=== PATIENT | female | born 1940 | race Caucasian/White ===

== ENCOUNTER 2022-11-13 11:46 | Emergency (ER) | payer MEDICARE, OTHER ==
[~2022-11-13] VITALS: Ht 170.2 cm; Wt 50.8 kg
[2022-11-13] MEDS ORDERED: HYDROCODONE/APAP 5-325MG TABLET PO ONE (12:00)
[2022-11-13] MEDS ORDERED: HYDROCODONE/APAP 5-325MG TABLET ONE (12:03)
[2022-11-13] MEDS ORDERED: HYDR-4209 PO (13:40)
--- NOTE | 2022-11-13 13:51 | NUR ---
Patient discharged to home in stable condition. Written and verbal after care instructions given. Patient verbalizes understanding of instructions. Stressed follow up or return to ER for worsening s/s. Cherise with voucher (#[id number]) called for patient for ride home.
== END 2022-11-13 13:53 | disposition home or self-care (01) ==
LOC: ER 11:46
DX: S30.0XXA Contusion of lower back and pelvis, initial encounter (principal); Z79.899 Other long term (current) drug therapy; W18.39XA Other fall on same level, initial encounter; Y93.89 Activity, other specified; Y92.89 Other specified places as the place of occurrence of the external cause; Y99.8 Other external cause status
CPT/HCPCS: 72131; 72192; A4663

== ENCOUNTER 2024-02-09 17:47 | Inpatient (IN) | payer MEDICARE, OTHER ==
[~2024-02-09] VITALS: Ht 167.6 cm; Wt 58.1 kg
[~2024-02-09 17:47] MED LIST: HYDR-4209 PO
[2024-02-09 18:10] LABS: *BILIRUBIN,URIN NEGATIVE (NEGATIVE); *BLOOD, URINE NEGATIVE (NEGATIVE); *CLARITY,URINE CLEAR (CLEAR); *COLOR,URINE YELLOW (YELLOW); *KETONES,URINE NEGATIVE (NEGATIVE); *PROTEIN,URINE NEGATIVE (NEGATIVE); *UROBILINOGEN,URINE 0.2 E.U./dl (NORMAL); LEUKOCYTE ESTERASE ,URINE TRACE (NEGATIVE); NITRITE, URINE NEGATIVE (NEGATIVE); PH,URINE 6.5 (5.0-8.0); UGLUCOSE NEGATIVE (NEGATIVE)
[2024-02-09] MEDS ORDERED: DICL100G31 TP (18:12)
[2024-02-09] MEDS ORDERED: HYDR20CR3 TOP (18:12)
[2024-02-09] MEDS ORDERED: CLOT15CR27 TP (18:12)
[2024-02-09] MEDS ORDERED: DONE5TAB34 PO (18:12)
[2024-02-09] MEDS ORDERED: ACET-2605 PO (18:12)
[2024-02-09] MEDS ORDERED: NYST15CR TP (18:12)
[2024-02-09] MEDS ORDERED: MEMA10TA PO (18:12)
[2024-02-09] MEDS ORDERED: VENL-192 PO (18:12)
[2024-02-09 18:17] LABS: RBC,URINE 0-3 /HPF (0-3)
[2024-02-09 18:29] LABS: BASOPHILS % (AUTO) 0.5 % (0.0-2.0); EOSINOPHILS % (AUTO) 0.2 % (0.0-7.0); HEMATOCRIT 40.1 % (31.2-41.9); HEMOGLOBIN 13.6 g/dL (10.9-14.3); LYMPHOCYTES # (AUTO) 1.9 K/uL (0.8-4.8); LYMPHOCYTES % (AUTO) 30.9 % (20.5-51.5); MEAN CORPUSCULAR HEMOGLOBIN 30.9 uug (24.7-32.8); MEAN CORPUSCULAR HGB CONC 34 g/dL (32.3-35.6); MEAN CORPUSCULAR VOLUME 91.4 fL (75.5-95.3); MONOCYTES # (AUTO) 0.7 K/uL (0.1-1.30); NEUTROPHILS # (AUTO) 3.5 K/uL (1.8-8.9); NEUTROPHILS % (AUTO) 57.4 % (38.5-71.5); PLATELET COUNT (AUTO) 305 K/uL (179-408); RED BLOOD CELL COUNT(AUTO) 4.39 MIL/uL (3.63-4.92); RED CELL DISTRIBUTION WIDTH 13.4 % (12.3-17.7); WHITE BLOOD COUNT (AUTO) 6.1 K/uL (3.8-11.8)
[2024-02-09 18:33] LABS: DIFFERENTIAL COMMENT 1
[2024-02-09 18:43] LABS: ETHANOL < 3 MG/DL (0-10)
[2024-02-09 18:45] LABS: *AMPHETAMINE, URINE NEGATIVE (NEGATIVE); *BARBITURATE, URINE NEGATIVE (NEGATIVE); *BENZODIAZEPINE, URINE NEGATIVE (NEGATIVE); *CANNABINOID, URINE NEGATIVE (NEGATIVE); *COCCAINE, URINE NEGATIVE (NEGATIVE); *OPIATE, URINE NEGATIVE (NEGATIVE); *PHENCYCLIDINE SCREEN,URINE NEGATIVE (NEGATIVE); FENTANYL, URINE NEGATIVE (NEGATIVE)
[2024-02-09 18:55] LABS: CALCIUM 9.5 mg/dL (8.5-10.1); CARBON DIOXIDE 25 mmol/L (21-32); CHLORIDE 104 mmol/L (98-107); GLUCOSE 105 mg/dL (74-106); SODIUM SERUM 139 mmol/L (136-145); UREA NITROGEN, BLOOD 22 mg/dL (7-18)
[2024-02-09 19:03] LABS: ALANINE AMINOTRANSFERASE 26 U/L (14-59); ALBUMIN 3.7 g/dL (3.4-5.0); ALKALINE PHOSPHATASE 92 U/L (50-136); ASPARTATE AMINOTRANSFERASE 12 U/L (15-37); BILIRUBIN,DIRECT 0.1 mg/dL (0.0-0.2); BILIRUBIN,TOTAL 0.5 mg/dL (0.2-1.0); TOTAL PROTEIN, SERUM 7.6 g/dL (6.4-8.2)
[2024-02-09 19:04] LABS: ACETAMINOPHEN < 2.0 ug/mL (10-30)
[2024-02-09 19:14] LABS: AMMONIA 14 umol/L (11-32)
[2024-02-09] MEDS ORDERED: LORAZEPAM 0.5 MG TABLET ONE (22:29)
[2024-02-09] MEDS ORDERED: ACETAMINOPHEN 325 MG TABLET PO PRN (22:30)
[2024-02-09] MEDS: BLOOD SUGAR DIAGNOSTIC 1 EACH STRIP VI ONE (22:30)
[2024-02-09] MEDS ORDERED: MAGNESIUM HYDROXIDE 30 ML LIQUID UDC PO PRN (22:30)
[2024-02-09] MEDS ORDERED: MAG HYDROX/AL HYDROX/SIMETH 30 ML LIQUID UDC PO PRN (22:30)
[2024-02-09] MEDS: LORAZEPAM 0.5 MG TABLET PO ONE (22:31)
[2024-02-09] MEDS ORDERED: HYDROCODONE/APAP 5-325MG TABLET PO PRN (23:15)
[2024-02-10 09:45] VITALS: BP 96/79; TEMP 98; O2SAT 98
[2024-02-10] MEDS: CLONAZEPAM 0.5 MG TABLET PO PRN (11:04)
[2024-02-10] MEDS: VENLAFAXINE 25 MG TABLET PO SCH (12:58)
[2024-02-10] MEDS: MEMANTINE HCL 10 MG TABLET PO SCH (14:15)
[2024-02-10 20:00] VITALS: BP 122/90; TEMP 97.8
[2024-02-10] MEDS: TEMAZEPAM 7.5 MG CAPSULE PO PRN (21:22)
[2024-02-11] MEDS: DONEPEZIL 10 MG TABLET PO SCH (09:00)
[2024-02-11] MEDS: ENSURE WITH FIBER 237 ML LIQUID (CHOCOLATE) PO SCH (11:45)
[2024-02-11 20:00] VITALS: TEMP 98; O2SAT 98
[2024-02-12 15:00] VITALS: BP 121/70; TEMP 99; O2SAT 96
[2024-02-12 19:49] VITALS: BP 118/68; TEMP 98.6; O2SAT 95
[2024-02-13] MEDS: LORAZEPAM 2 MG/1 ML VIAL IM ONE (11:23)
[2024-02-13] MEDS: OLANZAPINE 10 MG VIAL IM ONE (11:23)
[2024-02-13 20:22] VITALS: BP 141/66; TEMP 98.1; O2SAT 99
[2024-02-13] MEDS: DIVALPROEX SPRINKLE 125 MG CAP.SPRINK PO SCH (20:53)
[2024-02-14 07:49] VITALS: BP 123/57; TEMP 97.6; O2SAT 96
[2024-02-14 16:12] VITALS: BP 134/61; TEMP 97.7; O2SAT 96
[2024-02-14 20:00] VITALS: BP 130/66; TEMP 98.1; O2SAT 96
[2024-02-15 07:51] VITALS: BP 120/54; TEMP 98.4; O2SAT 96
[2024-02-15 16:38] VITALS: BP 145/64; TEMP 98.2; O2SAT 96
[2024-02-15 20:12] VITALS: BP 140/58; TEMP 98.2; O2SAT 98
[2024-02-16 07:47] VITALS: BP 142/66; TEMP 98.4; O2SAT 96
[2024-02-16 15:52] VITALS: BP 135/68; TEMP 98.3; O2SAT 96
[2024-02-16 19:56] VITALS: BP 140/60; TEMP 98.2; O2SAT 95
[2024-02-17 08:25] VITALS: BP 110/46; TEMP 98.2; O2SAT 98
[2024-02-18 07:51] VITALS: BP 152/60; TEMP 98.2; O2SAT 96
[2024-02-18 15:16] VITALS: BP 124/82; TEMP 98; O2SAT 98
[2024-02-18 20:10] VITALS: BP 145/54; TEMP 98.1; O2SAT 94
[2024-02-19 07:43] VITALS: BP 126/58; TEMP 97.6; O2SAT 97
== END 2024-02-19 15:15 | DRG 885 ==
LOC: ER 17:49 → GPS 22:17
PROVIDERS: ADMIT Psychiatry & Neurology Psychiatry; ATTEND Internal Medicine
DX: F33.3 Major depressive disorder, recurrent, severe with psychotic symptoms (principal); N18.9 Chronic kidney disease, unspecified; F03.911 Unspecified dementia, unspecified severity, with agitation; G91.2 (Idiopathic) normal pressure hydrocephalus; I42.9 Cardiomyopathy, unspecified; F03.94 Unspecified dementia, unspecified severity, with anxiety; I12.9 Hypertensive chronic kidney disease with stage 1 through stage 4 chronic kidney disease, or unspecified chronic kidney disease; M15.9 Polyosteoarthritis, unspecified; Z79.899 Other long term (current) drug therapy
CPT/HCPCS: 36415; 70450; 71045; 84484; 85025; 85730; 93005; G0480; J2060; J2358